=== PATIENT | female | born 1975 | race Two or more races ===

== ENCOUNTER 2023-10-09 17:32 | Inpatient (IN) | payer OTHER ==
[~2023-10-09] VITALS: Ht 157.5 cm; Wt 72.5 kg
[2023-10-09] MEDS ORDERED: CYCL-837 PO (20:33)
[2023-10-09] MEDS ORDERED: ACET500T58 PO (20:33)
[2023-10-09] MEDS: ASPirin 81 mg TAB PO ONE (22:15)
[2023-10-09] MEDS: ATORVASTATIN 20 MG TAB PO ONE (22:15)
[2023-10-09 23:00] VITALS: RESP 18; O2SAT 96
[2023-10-09 23:00] LABS: Basophils # (auto) 0.1 10 ^3/uL (0-0.2); Basophils % (auto) 0.9 % (0.0-2.0); Eosinophils # (auto) 0.2 10 ^3/uL (0-0.8); Eosinophils % (auto) 2.9 % (0.0-7.0); Hematocrit 43.1 % (36.0-46.0); Hemoglobin 14.9 g/dL (12.2-16.2); Mean Corpuscular Hgb Conc. 34.6 g/dL (32.0-36.0); Mean Corpuscular Volume 89.6 fL (80.0-100.0); Monocytes # (auto) 0.4 10 ^3/uL (0-1.3); Monocytes % (auto) 6.1 % (0.0-12.0); Neutrophils # (auto) 3.9 10 ^3/uL (1.6-8.6); Neutrophils % (auto) 59.1 % (37.0-80.0); Red Blood Cells 4.81 10^6/uL (4.0-5.20); Red Cell Distribution Width 13.3 % (11.8-14.3); White Blood Cell 6.5 10^3/uL (4.4-10.8)
[2023-10-09] MEDS ORDERED: HYDROcodone-ACET 5/325MG TAB PO PRN (23:00)
[2023-10-09] MEDS ORDERED: ONDANSETRON HCL 4 MG/2 ML VIAL IV PRN (23:00)
[2023-10-09 23:03] LABS: Alanine Aminotransferase 23 U/L (7-40); Albumin 4.9 g/dL (3.2-4.8); Alkaline Phosphatase 109 U/L (46-116); Anion Gap 8 (5-15); Aspartate Aminotransferase 15 U/L (13-40); Blood Urea Nitrogen 12 mg/dL (9-23); Calcium 10.2 mg/dL (8.5-10.1); Carbon Dioxide 25 mmol/L (20-30); Chloride 108 mmol/L (98-107); Glucose 91 mg/dL (74-106); Sodium 141 mmol/L (136-145)
[2023-10-09 23:04] LABS: Bilirubin, Total 0.4 mg/dL (0.2-1.0); Total Protein 7.9 g/dL (5.7-8.2)
[2023-10-09 23:12] LABS: INR 0.98 (0.9-1.15); Partial Thromboplastin Time 28.4 SEC (24.5-34.5); Prothrombin Time 10.4 sec (9.3-11.8)
[2023-10-10] VITALS (7 sets, daily range): BP systolic 112–121; BP diastolic 61–81; PULSE 54–78; RESP 16–18; TEMP 97.8–98.2; O2SAT 95–98
[2023-10-10] MEDS: IOHEXOL 350 MG/ML 100ML IJ ONE (03:41)
[2023-10-10 06:37] LABS: Anion Gap 9 (5-15); Carbon Dioxide 26 mmol/L (20-30); Chloride 108 mmol/L (98-107); Potassium 3.8 mmol/L (3.5-5.1); Sodium 143 mmol/L (136-145)
[2023-10-10 06:39] LABS: Calcium 9.8 mg/dL (8.7-10.4)
[2023-10-10 06:43] LABS: Glucose 91 mg/dL (74-106)
[2023-10-10 06:44] LABS: BUN/Creatinine Ratio 18.1 (10.0-20.0); Blood Urea Nitrogen 13 mg/dL (9-23)
[2023-10-10] MEDS: ASPirin 81 mg TAB PO SCH (08:27)
[2023-10-10 11:34] LABS: Erythrocyte Sedimentation Rate 10 mm/hr (0-20)
[2023-10-10] MEDS: ATORVASTATIN 20 MG TAB PO SCH (22:07)
[2023-10-10] MEDS: ACETAMINOPHEN 325 MG TAB PO PRN (22:07)
[2023-10-11] MEDS: TEMAZEPAM 15 MG CAP PO ONE (01:01)
[2023-10-11 01:03] VITALS: BP 107/59; PULSE 68; RESP 18; TEMP 98.1; O2SAT 95
[2023-10-11 05:00] VITALS: BP 97/105; PULSE 67; RESP 18; TEMP 98.3; O2SAT 97
[2023-10-11 08:00] VITALS: BP 104/61; PULSE 60; RESP 16; TEMP 97.8; O2SAT 97
[2023-10-11] MEDS ORDERED: TRAM50TA2 PO (09:17)
[2023-10-11] MEDS ORDERED: ASPI-498 PO (09:17)
[2023-10-11] MEDS ORDERED: ATOR20TA PO (09:17)
[2023-10-11 11:05] LABS: Triglycerides 70 mg/dL (< 150)
[2023-10-11 11:06] LABS: Cholesterol 169 mg/dL (< 200); LDL Cholesterol 94 mg/dL (< 100)
[2023-10-11 11:07] LABS: HDL Cholesterol 66 mg/dL (40-59)
[2023-10-11 11:55] VITALS: BP 135/72; PULSE 65; RESP 16; TEMP 98.1; O2SAT 96
[2023-10-11 13:07] LABS: Anti-Nuclear Antibody Direct Negative (Negative)
[2023-10-14 11:06] LABS: Protein C Antigen 76 % (60-150)
[2023-10-14 14:06] LABS: Anticardiolipin IgG Antibody <9 GPL U/mL (0-14); Anticardiolipin IgM Antibody <9 MPL U/mL (0-12)
[2023-10-15 19:06] LABS: Antithrombin III Antigen 98 % (72-124); Dilute Prothrombin Time(dPT) 44.2 sec (0.0-47.6); Lupus Interpretation Comment: (.); PTT-LA 38.5 sec (0.0-43.5); Protein S Antigen Free 93 % (61-136); Proten S Antigen Total 76 % (60-150); Thrombin Time 17.9 sec (0.0-23.0); dRVVT 40.8 sec (0.0-47.0)
== END 2023-10-11 15:57 | disposition home or self-care (01) | DRG 45 ==
LOC: ER 17:32 → OVERFLOW 23:00 → EAST 10-10 03:30
PROVIDERS: ADMIT Nurse Practitioner; ATTEND Family Medicine
DX: I63.9 Cerebral infarction, unspecified (principal); S16.1XXA Strain of muscle, fascia and tendon at neck level, initial encounter; S42.295A Other nondisplaced fracture of upper end of left humerus, initial encounter for closed fracture; Z79.1 Long term (current) use of non-steroidal anti-inflammatories (NSAID); Z79.899 Other long term (current) drug therapy; Z90.710 Acquired absence of both cervix and uterus; Z79.82 Long term (current) use of aspirin; Y93.89 Activity, other specified; Y99.8 Other external cause status; V43.52XA Car driver injured in collision with other type car in traffic accident, initial encounter; Y92.488 Other paved roadways as the place of occurrence of the external cause
CPT/HCPCS: 36415; 70450; 70496; 72100; 72125; 73030; 73110; 73200; 80048; 80053; 80061; 81241; 85025; 85301; 85302; 85305; 85306; 85610; 85613; 85652; 85670; 85705; 85730; 85732; 86038; 86141; 86147; G0378